=== PATIENT | male | born 1985 | race Caucasian/White ===

== ENCOUNTER 2023-10-21 12:05 | Emergency (ER) | payer SELFPAY ==
[2023-10-21 12:45] VITALS: BMI 26.6
[2023-10-21] MEDS ORDERED: NALOXONE HCL 0.4 MG/ML VIAL IVPUSH ONE ×2 (12:50→13:15)
[2023-10-21 12:58] VITALS: BP 129/87; PULSE 94; RESP 18; TEMP 98
[2023-10-21] MEDS ORDERED: ONDANSETRON 4 MG/2 ML VIAL IVPUSH ONE (13:15)
== END 2023-10-21 13:00 | disposition left against medical advice (07) ==
LOC: JER 12:05
PROC: 3E033GC Introduction of Other Therapeutic Substance into Peripheral Vein, Percutaneous Approach (ICD-10-PCS; principal; 2023-10-21)
PROC: 3E033GC Introduction of Other Therapeutic Substance into Peripheral Vein, Percutaneous Approach (ICD-10-PCS; 2023-10-21)
DX: T40.601A Poisoning by unspecified narcotics, accidental (unintentional), initial encounter (principal); I24.9 Acute ischemic heart disease, unspecified
CPT/HCPCS: 93005; 93010; 99284-25